=== PATIENT | male | born 1965 | race Caucasian/White ===

== ENCOUNTER 2016-08-06 08:38 | Emergency (ER) | payer BC, OTHER ==
[~2016-08-06] VITALS: Ht 170.2 cm; Wt 100.0 kg
[~2016-08-06 08:38] MED LIST: FOLI1 PO; LORA-392 PO; MVI PO; PROT40TA PO; THIA100T PO
[2016-08-06 08:40] VITALS: BP 168/98; PULSE 87; RESP 20; TEMP 97.8; O2SAT 96
[2016-08-06] MEDS ORDERED: LISI-515 PO (09:14)
[2016-08-06] MEDS ORDERED: ZANT150T2 PO (09:14)
[2016-08-06] MEDS ORDERED: ALUMINUM/MAGNESIUM/SIMETH 30 ML CUP PO ONE (09:15)
[2016-08-06] MEDS ORDERED: LIDOCAINE VISCOUS 2% SOLN 15 ML UDC PO ONE (09:15)
--- NOTE | 2016-08-06 09:15 | PD ---
HPI Chief Complaint: Alcohol/Drug Intoxication Time Seen by Provider: 09:08 Travel History International Travel<30 days: No Contact w/Intl Traveler<30days: No Traveled to known affect area: No History of Present Illness HPI 51-year-old male here with complaints of alcoholism. Patient states that he has been drinking heavily recently, drinks approximately 4 shots of whiskey and 4 beers daily. He wants to get sober. Patient states "I need to sober up before I drink myself to ". 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 He has never sought alcohol treatment before. He last had a drink in approximately 3: 57 AM. He feels fine this morning, denies any tremor, but does note some nausea. He will have some minimal epigastric discomfort when he wakes, states that this is somewhat worse when drinking beer. PFSH Past Medical History Heart Rhythm Problems: No Cardiac Catheterization: No Cardiovascular Problems: No High Cholesterol: Yes Congestive Heart Failure: No Diabetes: No Hypertension: Yes Past Surgical History Surgical History: No Previous Surgery Other Surgery: Yes Family History Family Myocardial Infarction: No Social History Alcohol Use: Yes (4 DRINKS/DAY- LAST DRINK 0300 08/06/16) Tobacco Use: Yes (1 PPD) Substance Use: No Allergies-Medications (Allergen,Severity, Reaction): Coded Allergies: No Known Allergies (Unverified , 08/06/16) Reported Meds & Prescriptions Reported Meds & Active Scripts Active Zantac (Ranitidine HCl) 150 Mg Tab 150 Mg PO BID Lisinopril 20 Mg Tab 20 Mg PO DAILY Review of Systems Except as stated in HPI: all other systems reviewed are Neg Physical Exam Narrative GENERAL: Well-appearing obese male in no acute distress SKIN: Focused skin assessment warm/dry. HEAD:Normocephalic. EYES: . No scleral icterus. No injection or drainage. ENT: Mucous membranes pink and moist. NECK: Supple CARDIOVASCULAR: Regular rate and rhythm. No murmur appreciated. Hypertensive RESPIRATORY: No accessory muscle use. Clear to auscultation. Breath sounds equal bilaterally. GASTROINTESTINAL: Abdomen soft, non-tender, nondistended. Obese MUSCULOSKELETAL: Normal gait NEUROLOGICAL: Awake and alert. No appreciable tremor Normal speech. PSYCHIATRIC: Appropriate mood and affect; insight and judgment normal. Data Data Last Documented VS Vital Signs Date Time Temp Pulse Resp B/P Pulse Ox O2 Delivery O2 Flow Rate FiO2 08/06/16 09:10 18 Room Air 08/06/16 08:40 97.8 87 168/98 96 Orders Al-Mag Hy-Si 40-40-4 Mg/Ml Liq (Mag-Al P (08/06/16 09:15) Lidocaine 2% Viscous (Xylocaine 2% Visco (08/06/16 09:15) MDM Medical Decision Making Medical Screen Exam Complete: Yes Emergency Medical Condition: Yes Medical Record Reviewed: Yes Differential Diagnosis 51-year-old male with history of alcoholism here with complaint of same. Patient ultimately really is looking for treatment. Unfortunately we do not have inpatient detox here at [facility]. Patient was informed of this and was given numerous old patient resources and referrals for this. He does not have any evidence of any acute withdrawal. Though he does complain of some intermittent epigastric discomfort when drinking heavily he does not have any reproducible pain at this time to suggest pancreatitis or hepatobiliary pathology. I do not think laboratory workup is warranted at this time. Romelia owen is notably hypertensive, history of same but has not been on his lisinopril in several years. We'll refill this and have him follow up with outpatient PCP to establish care. Narrative Course See above Diagnosis Primary Impression: Alcoholism Additional Impression: Hypertension Qualified Code: I10 - Essential hypertension Referrals: [facility] call for appointment [facility] call for appointment Additional Instructions: Lisinopril as prescribed for high blood pressure. You can get this for free at [facility]. Follow up with outpatient resources for alcoholism as discussed. Antacid as prescribed, this will help with the stomach pains that you get when drinking heavily. Med/Other Pt SpecificInfo: Prescription(s) given Scripts Ranitidine (Zantac)150 Mg Dpx179 Mg PO BID #60 TAB Ref 0 Prov:Flori Diallo MD 08/06/16 Lisinopril 20 Mg Tab20 Mg PO DAILY #30 TAB Ref 0 Prov:Flori Diallo MD 08/06/16 Disposition: 01 DISCHARGE HOME Condition: Stable Flori Diallo MD August 06, 2016 09:15
== END 2016-08-06 10:04 | disposition home or self-care (01) ==
LOC: NEPD 08:38
DX: F10.20 Alcohol dependence, uncomplicated (principal); I10 Essential (primary) hypertension; E78.00 Pure hypercholesterolemia, unspecified; F17.200 Nicotine dependence, unspecified, uncomplicated
CPT/HCPCS: 99283